=== PATIENT | male | born 1970 | race Caucasian/White ===

== ENCOUNTER → 2016-12-24 | Outpatient (CLI) | payer BC ==
[~2016-12-24] MED LIST: FELDENE 10 MG C10 MG PO; FLEXERIL10 MG PO; HYDROCODON-ACE1 EAC8 PO; LIPITOR20 MG PO; LISINOPRIL10 MG PO; NORCO 7.5/321 TABLET PO; OMEPRAZOLE40 M1 PO; PRILOSEC40 MG PO; RESTORIL30 MG PO; SULINDAC150 MG PO; TESTOSTERO100 MG/11 IM
== END | disposition home or self-care (01) ==
LOC: CDC 11:43
DX: I45.9 Conduction disorder, unspecified (principal); M47.9 Spondylosis, unspecified
CPT/HCPCS: 93000

== ENCOUNTER 2016-12-27 08:56 | Inpatient (IN) | payer BC ==
[~2016-12-27] VITALS: Ht 180.3 cm; Wt 106.2 kg
[2016-12-27 10:27] VITALS: BP 174/80
[2016-12-27 20:50] VITALS: BP 148/94
[2016-12-27 21:00] VITALS: BP 148/9
[2016-12-27 23:56] VITALS: BP 144/77
[2016-12-28 05:11] VITALS: BP 102/56
[2016-12-28 08:16] VITALS: BP 105/58
[2016-12-28] MEDS ORDERED: NORCO 7.5/321 TABLET PO (08:40)
[2016-12-28] MEDS ORDERED: CYCLOBENZAPRINE10 MG PO (08:40)
[2016-12-28 11:19] VITALS: BP 140/69
[2016-12-28 16:28] VITALS: BP 134/84
== END 2016-12-28 18:34 | disposition home or self-care (01) | DRG 460 ==
LOC: 2SOUTH 08:56 → 3EAST 09:50 → 2SOUTH 09:50 → 3EAST 09:50 → 2SOUTH 11:25 → 3EAST 20:36
DX: M48.06 Spinal stenosis, lumbar region (principal); M51.36 Other intervertebral disc degeneration, lumbar region; M47.9 Spondylosis, unspecified; Z98.1 Arthrodesis status; I10 Essential (primary) hypertension; K21.9 Gastro-esophageal reflux disease without esophagitis; M51.16 Intervertebral disc disorders with radiculopathy, lumbar region
CPT/HCPCS: 72100; 76000; 95886; 95938; C1713; G0378; J0131; J0330; J0690; J1100; J1170; J2250; J2405; J2704; J3010; J3370; J3480; S0020